=== PATIENT | male | born 1955 | race Caucasian/White ===

== ENCOUNTER 2017-03-12 13:53 | Inpatient (IN) | payer BC, MEDICAID ==
[~2017-03-12] VITALS: Ht 180.3 cm; Wt 100.6 kg
[2017-03-12] MEDS ORDERED: PANTOPRAZOLE 80 MG in SODIUM CHLORIDE 0.9% 50 ML IVPB ONE (14:09)
[2017-03-12] MEDS ORDERED: PANTOPRAZOLE 80 MG in SODIUM CHLORIDE 0.9% 100 ML IV SCH (14:09)
[2017-03-12] MEDS ORDERED: PLEASE ENTER HEIGHT AND WEIGHT MC SCH (14:30)
[2017-03-12] MEDS ORDERED: CEFTRIAXONE PMX 1GM/50ML 50 ML IV ONE (14:30)
[2017-03-12] MEDS ORDERED: PLEASE ENTER ALLERGIES MC SCH ×2 (14:30)
[2017-03-12] MEDS ORDERED: SODIUM CHLORIDE FLUSH 10ML SYR IVF ONE (14:30)
[2017-03-12] MEDS ORDERED: SODIUM CHLORIDE 0.9% 1,000ML IVBOLUS ONE (14:30)
[2017-03-12] MEDS ORDERED: CEFTRIAXONE PMX 1GM/50ML 50 ML ONE (14:32)
[2017-03-12 14:47] LABS: ASPARTATE AMINO TRANSFERASE 18 U/L (15-37); BLOOD UREA NITROGEN 38 mg/dL (7-18)
[2017-03-12] MEDS ORDERED: BUPR75TA6 PO (15:42)
[2017-03-12] MEDS ORDERED: LORA10TA62 PO (15:42)
[2017-03-12] MEDS ORDERED: NYST1000 PO (15:42)
[2017-03-12] MEDS ORDERED: LOSA25TA5 PO (15:42)
[2017-03-12] MEDS ORDERED: PANT40TA5 PO (15:42)
[2017-03-12] MEDS ORDERED: DOCU100C24 PO (15:42)
[2017-03-12] MEDS ORDERED: ASPI-496 PO (15:43)
[2017-03-12] MEDS ORDERED: FERR324T5 PO (15:43)
[2017-03-12] MEDS ORDERED: METH750T2 PO (15:43)
[2017-03-12] MEDS ORDERED: ERGO500017 PO (15:43)
[2017-03-12] MEDS ORDERED: SIMV40TA3 PO (15:43)
[2017-03-12] MEDS ORDERED: MELA1TAB22 PO (15:43)
[2017-03-12] MEDS ORDERED: ALBU18HF PO (15:43)
[2017-03-12] MEDS ORDERED: NITR0.4T SL (15:43)
[2017-03-12] MEDS ORDERED: ASCO-96 PO (15:43)
[2017-03-12] MEDS ORDERED: FLUO20CA8 PO (15:43)
[2017-03-12] MEDS ORDERED: NITROGLYCERIN 0.4 MG BOTTLE (25 TABS) SL PRN (16:00)
[2017-03-12] MEDS ORDERED: ONDANSETRON ODT 4 MG PO PRN (16:30)
[2017-03-12] MEDS ORDERED: ALBUTEROL SULFATE 2.5 MG/3 ML NPPB PRN (16:30)
[2017-03-12] MEDS ORDERED: ONDANSETRON 2MG/ML, 2ML IVPush PRN (16:30)
[2017-03-12] MEDS ORDERED: BISACODYL 10 MG SUPP PR PRN (16:30)
[2017-03-12] MEDS ORDERED: DIPHENHYDRAMINE 50 MG/ML, 1ML IVPush ONE ×3 (16:30→22:00)
[2017-03-12] MEDS ORDERED: POLYETHYLENE GLYCOL 17 GM PACKET PO PRN (16:30)
[2017-03-12] MEDS ORDERED: FUROSEMIDE 20 MG/2 ML IVPush ONE ×2 (16:30→22:00)
[2017-03-12] MEDS ORDERED: MELATONIN 3 MG TABLET PO PRN (17:00)
[2017-03-12 19:11] VITALS: BP 123/80
[2017-03-12] MEDS: METHOCARBAMOL 750 MG TABLET PO SCH ×2 (20:00→20:34)
[2017-03-12] MEDS: ALBUTEROL SULFATE 2.5 MG/3 ML NPPB SCH (20:12)
[2017-03-12] MEDS: SODIUM CHLORIDE 0.9% 1,000 ML IV SCH (20:33)
[2017-03-12] MEDS: NYSTATIN 500,000 UNITS/5 ML UDC PO SCH (20:33)
[2017-03-12] MEDS: PANTOPRAZOLE 80 MG in SODIUM CHLORIDE 0.9% 100 ML IV SCH (20:33)
[2017-03-12] MEDS: NICOTINE 14MG/24 HR PATCH.TD24 TD SCH (20:34)
[2017-03-12] MEDS: SIMVASTATIN 40 MG TABLET PO SCH (20:35)
[2017-03-12 20:53] LABS: IS PT STATUS REG ER OR PRE ER? NO
[2017-03-12 22:21] VITALS: BP 119/80
[2017-03-12 22:40] VITALS: BP 123/82
[2017-03-12 22:55] VITALS: BP 131/75
[2017-03-12 23:55] VITALS: BP 143/87
[2017-03-13] VITALS (11 sets, daily range): BP systolic 99–147; BP diastolic 59–86
[2017-03-13] MEDS ORDERED: MAGNESIUM SULFATE PMX 2GM/50ML 50 ML IV ONE
[2017-03-13] MEDS: ALBUTEROL SULFATE 2.5 MG/3 ML NPPB SCH ×5 (00:29→19:31)
[2017-03-13] MEDS: morphine SULFATE 10 MG/ML, 1ML IVPush PRN ×2 (01:25→12:22)
[2017-03-13] MEDS: NYSTATIN 500,000 UNITS/5 ML UDC PO SCH ×4 (02:00→20:31)
[2017-03-13 02:30] LABS: IS PT STATUS REG ER OR PRE ER? NO
[2017-03-13] MEDS: METHOCARBAMOL 750 MG TABLET PO SCH ×4 (05:26→20:32)
[2017-03-13] MEDS: PANTOPRAZOLE 80 MG in SODIUM CHLORIDE 0.9% 100 ML IV SCH (06:15)
[2017-03-13 06:47] LABS: BLOOD UREA NITROGEN 16 mg/dL (7-18)
[2017-03-13] MEDS ORDERED: FENTANYL PF 100 MCG/2ML ONE (08:19)
[2017-03-13] MEDS ORDERED: MIDAZOLAM 1 MG/ML, 5ML ONE (08:20)
[2017-03-13] MEDS ORDERED: POTASSIUM CHLORIDE 20 MEQ TAB.ER.PRT PO ONE (09:00)
[2017-03-13] MEDS: FERROUS SULFATE 325 MG TABLET PO SCH (10:15)
[2017-03-13] MEDS: OMEPRAZOLE 20 MG CAPSULE.DR PO SCH ×2 (10:15→20:32)
[2017-03-13] MEDS: LOSARTAN 25MG TABLET PO SCH (10:16)
[2017-03-13] MEDS: LORATADINE 10 MG TABLET PO SCH (10:16)
[2017-03-13] MEDS: DOCUSATE 100 MG CAPSULE PO SCH (10:16)
[2017-03-13] MEDS: BUPROPION 75 MG TABLET PO SCH (10:17)
[2017-03-13] MEDS: FLUOXETINE 20 MG CAPSULE PO SCH (10:19)
[2017-03-13] MEDS: SODIUM CHLORIDE 0.9% 1,000 ML IV SCH ×2 (13:43→20:32)
[2017-03-13] MEDS: SIMVASTATIN 40 MG TABLET PO SCH (20:32)
[2017-03-13] MEDS: NICOTINE 14MG/24 HR PATCH.TD24 TD SCH (20:32)
[2017-03-14 01:30] VITALS: BP 130/75
[2017-03-14] MEDS: ALBUTEROL SULFATE 2.5 MG/3 ML NPPB SCH ×3 (02:10→10:32)
[2017-03-14] MEDS: NYSTATIN 500,000 UNITS/5 ML UDC PO SCH ×2 (02:13→08:22)
[2017-03-14] MEDS: SODIUM CHLORIDE 0.9% 1,000 ML IV SCH ×2 (04:27→12:25)
[2017-03-14] MEDS: METHOCARBAMOL 750 MG TABLET PO SCH ×2 (04:55→10:41)
[2017-03-14 06:08] LABS: BLOOD UREA NITROGEN 8 mg/dL (7-18)
[2017-03-14 07:35] VITALS: BP 106/64
[2017-03-14] MEDS: DOCUSATE 100 MG CAPSULE PO SCH (08:22)
[2017-03-14] MEDS: OMEPRAZOLE 20 MG CAPSULE.DR PO SCH (08:22)
[2017-03-14] MEDS: FLUOXETINE 20 MG CAPSULE PO SCH (08:22)
[2017-03-14] MEDS: BUPROPION 75 MG TABLET PO SCH (08:22)
[2017-03-14] MEDS: LORATADINE 10 MG TABLET PO SCH (08:22)
[2017-03-14] MEDS: LOSARTAN 25MG TABLET PO SCH (08:22)
[2017-03-14] MEDS: FERROUS SULFATE 325 MG TABLET PO SCH (08:22)
[2017-03-14 13:11] VITALS: BP 106/62
== END 2017-03-14 13:34 | disposition home or self-care (01) | DRG 378 ==
LOC: ED 14:53 → EDIP 14:55 → ED 15:22 → 4EST 16:07
PROVIDERS: ADMIT Hospitalist; ATTEND Hospitalist
PROC: 30233N1 Transfusion of Nonautologous Red Blood Cells into Peripheral Vein, Percutaneous Approach (ICD-10-PCS; principal; 2017-03-12)
PROC: 0DJ08ZZ Inspection of Upper Intestinal Tract, Via Natural or Artificial Opening Endoscopic (ICD-10-PCS; 2017-03-13)
DX: K25.4 Chronic or unspecified gastric ulcer with hemorrhage (principal); J96.11 Chronic respiratory failure with hypoxia; D62 Acute posthemorrhagic anemia; D72.829 Elevated white blood cell count, unspecified; R73.9 Hyperglycemia, unspecified; G40.909 Epilepsy, unspecified, not intractable, without status epilepticus; E66.9 Obesity, unspecified; E87.6 Hypokalemia; K44.9 Diaphragmatic hernia without obstruction or gangrene; F43.9 Reaction to severe stress, unspecified; E86.0 Dehydration; F17.210 Nicotine dependence, cigarettes, uncomplicated; I25.10 Atherosclerotic heart disease of native coronary artery without angina pectoris; J44.9 Chronic obstructive pulmonary disease, unspecified; F32.9 Major depressive disorder, single episode, unspecified; E78.5 Hyperlipidemia, unspecified; I69.320 Aphasia following cerebral infarction; Z90.49 Acquired absence of other specified parts of digestive tract; Z95.5 Presence of coronary angioplasty implant and graft; Z82.49 Family history of ischemic heart disease and other diseases of the circulatory system; Z88.6 Allergy status to analgesic agent; Z79.899 Other long term (current) drug therapy; Z68.30 Body mass index [BMI] 30.0-30.9, adult; Z79.82 Long term (current) use of aspirin; I25.2 Old myocardial infarction
CPT/HCPCS: 36415; 71010; 80048; 80053; 80307; 83690; 83735; 84484; 85014; 85018; 85025; 85610; 86850; 86900; 86923; 93005; 94640; 96365; 96368; 96376; 99152; 99153; J0696; J2250; J3010; J7613; C9113; J1200; J1940; J2270; J3475; J7030; P9016